=== PATIENT | male | born 1950 | race Caucasian/White ===

== ENCOUNTER → 2019-08-11 08:15 | Outpatient (CLI) | payer MEDICARE, BC ==
[2014-07-15 09:09] VITALS: BMI 36.3
[~2019-08-11 08:15] MED LIST: ALEVE220 MG PO; BAYER CHEWABLE81 MG PO; HEMOCYTE PLUS C1 CAP PO; HYDROCODON-ACE1 EAC7 PO; IMODIUM2 MG PO; K-DUR20 MEQ PO; LASIX40 MG PO; PRAVACHOL20 MG PO; TOPROL XL100 MG PO
== END | disposition home or self-care (01) ==
LOC: D.HCCECHO 08:15
PROVIDERS: ATTEND Internal Medicine Cardiovascular Disease
DX: I34.0 Nonrheumatic mitral (valve) insufficiency (principal)

== ENCOUNTER → 2020-08-24 08:50 | Outpatient (CLI) | payer MEDICARE, BC ==
[2014-07-15 09:09] VITALS: BMI 36.3
== END | disposition home or self-care (01) ==
LOC: D.HCCECHO 08:50
PROVIDERS: ATTEND Internal Medicine Cardiovascular Disease
DX: I34.0 Nonrheumatic mitral (valve) insufficiency (principal)

== ENCOUNTER → 2021-03-03 08:29 | Outpatient (CLI) | payer MEDICARE, BC ==
[2014-07-15 09:09] VITALS: BMI 36.3
== END | disposition home or self-care (01) ==
LOC: D.HCCARDIO 08:29
PROVIDERS: ATTEND Internal Medicine Cardiovascular Disease
DX: I25.10 Atherosclerotic heart disease of native coronary artery without angina pectoris (principal)

== ENCOUNTER → 2021-04-05 13:01 | Outpatient (CLI) | payer MEDICARE, BC ==
[2014-07-15 09:09] VITALS: BMI 36.3
== END | disposition home or self-care (01) ==
LOC: D.CT 13:00
PROVIDERS: ATTEND Nurse Practitioner
DX: R06.09 Other forms of dyspnea (principal); R05 Cough